=== PATIENT | male | born 2000 | race Asian ===

== ENCOUNTER 2024-11-07 18:05 | Emergency (ER) | payer MEDICAID ==
[~2024-11-07] VITALS: Ht 177.8 cm; Wt 89.8 kg
[2024-11-07 18:10] VITALS: TEMP 98
[2024-11-07] MEDS: LEVETIRACETAM (500MG) 1,000 MG in IV NS 0.9% 90 ML IV SCH (19:12)
[2024-11-07 19:13] LABS: PLATELET COUNT (AUTO) 175 K/uL (150-450); RED BLOOD CELL COUNT(AUTO) 5.09 MIL/uL (4.5-6.0); RED CELL DISTRIBUTION WIDTH 12.6 % (11.5-15.0); WHITE BLOOD COUNT (AUTO) 3.7 K/uL (4.3-11.0)
[2024-11-07 19:20] LABS: CALCIUM, SERUM 8.6 mg/dL (8.5-10.1); CREATININE 1.1 mg/dL (0.6-1.3); SODIUM SERUM 137.0 mmol/L (136-145); UREA NITROGEN, BLOOD 20.0 mg/dL (7-18)
[2024-11-07 19:25] LABS: ASPARTATE AMINOTRANSFERASE 23.0 U/L (15-37); TOTAL PROTEIN, SERUM 6.8 g/dL (6.4-8.2)
[2024-11-07 19:59] VITALS: BP 124/72; O2SAT 98
== END 2024-11-07 20:00 | disposition home or self-care (01) ==
LOC: ER 18:10
DX: G40.909 Epilepsy, unspecified, not intractable, without status epilepticus (principal)
CPT/HCPCS: 99284; 96365; 85025; 36415; 80053; J7030; J1953